=== PATIENT | male | born 1990 | race Caucasian/White ===

== ENCOUNTER 2018-06-22 22:54 | Observation (INO) | payer BC ==
[2018-06-22 23:01] VITALS: BMI 23.3
--- NOTE | 2018-06-22 23:52 | PDOC ---
History of Present Illness - General Chief Complaint: Pain Stated Complaint: HICCUPS Time Seen by Provider: 06/22/18 23:52 - History of Present Illness Initial Comments: 06/23/18 00:54 The patient is a 27 year old male with no significant PMH who presents for evaluation of hiccups and chest pain. The patient reports onset of hiccups earlier this morning that have persisted throughout the day. He noted some left sided chest pain as well prompting his presentation to the ED for further evaluation. He notes that his hiccups have since resolved, but continues to experience some left sided chest pain. He otherwise denies fevers, chills, SOB , nausea, vomiting, abdominal pain, or changes with urination or bowel movements. He denies a family history of cardiac disease as well. Past History - Past Medical History Allergies/Adverse Reactions: Allergies Allergy/AdvReac Type Severity Reaction Status Date / Time No Known Allergies Allergy Verified 06/22/18 23:00 COPD: No - Suicide/Smoking/Psychosocial Hx Smoking History: Never smoked Have you smoked in the past 12 months: No Information on smoking cessation initiated: No Hx Alcohol Use: No Drug/Substance Use Hx: No Substance Use Type: None Review of Systems - Review of Systems Comments:: 06/23/18 00:57 Constitutional: No fevers, chills, fatigue, malaise HEENT: No Rhinorrhea, nasal congestion, visual changes Cardiovascular: Chest pain. No syncope, palpitations, lightheadedness Respiratory: No Cough, SOB, Hemoptysis, Gastrointestinal: No Abdominal pain, Nausea, Vomiting, Constipation, Diarrhea, Melena Genitourinary: No Dysuria, Frequency, Urgency, Hesitancy, Hematuria, Flank pain Musculoskeletal: No Myalgia, arthralgia Skin: No rashes, itching, bruising, pallor Neurologic: No Headache, Dizziness, Numbness, Weakness, or Tingling Psychiatric: No Hallucinations. No SI or HI *Physical Exam - Vital Signs Last Vital Signs Temp Pulse Resp BP Pulse Ox 98.5 F 67 18 123/77 100 06/22/18 22:57 06/22/18 22:57 06/22/18 22:57 06/22/18 22:57 06/22/18 22:57 - Physical Exam Comments: 06/23/18 00:57 General Appearance: Nourished. No Apparent Distress HEENT: No Pharyngeal Erythema, Tonsillar Exudate, Tonsillar Erythema Neck: No Cervical Lymphadenopathy Respiratory/Chest: Lungs Clear, Normal Breath Sounds. Minimal reproducible tenderness to palpation along the left sternal boarder. No Crackles, Rales, Rhonchi, Wheezing Cardiovascular: Regular Rhythm, Regular Rate. No Murmur, Gallops, Rubs Gastrointestinal/Abdominal: Normal Bowel Sounds, Soft. No Guarding, Rebound, Tenderness Musculoskeletal: No CVA Tenderness Extremity: Normal Capillary Refill Integumentary: Normal Color, Dry, Warm Neurologic: Fully Oriented, Alert, Normal Mood/Affect, Normal Response, Heart Score/ECG Review #1 ECG reviewed & interpreted by me at: 00:59 General ECG Interpretation: Sinus Rhythm, Normal Rate, Normal Intervals, No acute ischemic changes ED Treatment Course - LABORATORY CBC & Chemistry Diagram: 06/23/18 00:38 06/23/18 00:38 Medical Decision Making - Medical Decision Making 06/23/18 00:59 The patient is a 27 year old male with no significant PMH who presents for evaluation of hiccups and chest pain. Differential includes but is not limited to: ACS, Musculoskeletal, Arrhythmia, infectious, metabolic Derangement. Given the patient's history and physical exam, it is likely the patient's symptoms are musculoskeletal in nature. However, we will obtain a cbc, cmp, troponin, ekg, chest plain film to evaluate further. We will continue to monitor and reassess while here in the ED. 06/23/18 04:18 CBC, cmp are unremarkable. Troponin is elevated to 0.07. Chest plain film is unremarkable. Bedside echocardiogram is unremarkable. Given the patient's elevated troponin and elevated WBC, it is possible the patient's symptoms are due to a myocarditis. However, he will require observation admission for further work up. We discussed the case with the admitting team who accepted the patient for admission. *DC/Admit/Observation/Transfer Diagnosis at time of Disposition: Elevated troponin Chest pain Qualifiers: Chest pain type: unspecified Qualified Code(s): R07.9 - Chest pain, unspecified - Discharge Dispostion Condition at time of disposition: Stable Decision to Admit order: Yes - Referrals - Patient Instructions - Post Discharge Activity
[2018-06-23 00:53] LABS: BASO % 0.8 % (0-2.0); HEMATOCRIT 44.8 % (35.4-49); HEMOGLOBIN 14.9 GM/dL (11.7-16.9); LYMPH % 25.3 % (8-40); MCH 28.2 pg (25.7-33.7); MCHC 33.3 g/dl (32.0-35.9); MEAN CELL VOLUME 84.7 fl (80-96); MEAN PLT VOLUME 8.3 fl (7.5-11.1); MONO % 5.4 % (3.8-10.2); NEUT % 67.5 % (42.8-82.8); PLATELET COUNT 222 K/MM3 (134-434); RBC 5.28 M/mm3 (4.00-5.60); RDW 13.6 % (11.9-15.9)
--- NOTE | 2018-06-23 01:00 | PDOC ---
Attending Attestation - Resident Resident Name: Musa Valderrama - ED Attending Attestation I have performed the following: I have examined & evaluated the patient, The case was reviewed & discussed with the resident, I agree w/resident's findings & plan, Exceptions are as noted - HPI HPI: 06/23/18 00:57 "The patient is a 27 year old male with no PMH who presents to the emergency department with 1 day of chest pain. The patient notes that he started having hiccups this morning at 9am. The hiccups have been persistent and have subsequently led to soreness in his mid chest. While in the ED, the patient notes his hiccups have resolved. However, he reports pain in the middle of his sternum that is reproducible with palpation. He denies any shortness of breath or palpitations. He denies any recent fevers, chills, headache or dizziness. He denies any recent nausea, vomit, diarrhea or constipation. He denies any recent dysuria, frequency, urgency or hematuria. Allergies: NKDA Past surgical history: None reported. Social History: Nonsmoker. Denies EtOH use and recreational drug use. " - Physicial Exam PE: 06/23/18 00:59 GENERAL: Awake, alert, and fully oriented, in no acute distress. HEAD: No signs of trauma EYES: PERRLA, EOMI, sclera anicteric, conjunctiva clear ENT: Auricles normal inspection, hearing grossly normal, nares patent, oropharynx clear without exudates. Moist mucosa NECK: Nontender, no stepoffs, Normal ROM, supple, no lymphadenopathy, JVD, or masses LUNGS: Breath sounds equal, clear to auscultation bilaterally. No wheezes, and no crackles HEART: Regular rate and rhythm, normal S1 and S2, no murmurs, rubs or gallops ABDOMEN: Soft, nontender, normoactive bowel sounds. No guarding, no rebound. No masses EXTREMITIES: Normal range of motion, no edema. No clubbing or cyanosis. No cords, erythema, or tenderness NEUROLOGICAL: Cranial nerves II through XII intact. 5/5 strength and sensation in all extremities, Normal speech, normal gait, normal cerebellar function SKIN: Warm, Dry, normal turgor, no rashes or lesions noted. - Critical Care Time Total Critical Care Time: 60 Critical Care Statement: The care of this patient involved high complexity decision making to prevent further life threatening deterioration of the patient 's condition and/or to evaluate & treat vital organ system(s) failure or risk of failure. - Medical Decision Making 06/23/18 00:59 27 M with midsternal chest pain after having hiccups all day. Pt with no cardiac risk factors, making ACS unlikely. EKG nonischemic. Pt also with no PE risk factors, PERC score 0. Pain likely msk in etiology. No abdominal tenderness to suggest GI pathology. - Labs, trop - CXR 06/23/18 01:21 Pt with mild trop elevation 0.07 Low suspicion for ACS given lack of risk factors. However, EKG shows ? subtle NE depression in lateral leads, possibly suggestive of pericarditis/myocarditis 06/23/18 03:30 Bedside US with no pericardial effusion Will admit to hospitalist.
[2018-06-23 01:14] LABS: ALBUMIN 4.2 g/dl (3.4-5.0); ALK PHOS 78 U/L (45-117); ANION GAP 4 MMOL/L (8-16); BILIRUBIN,TOTAL 0.8 mg/dL (0.2-1); BLOOD UREA NITROGEN 12 mg/dL (7-18); CALCIUM 8.4 mg/dL (8.5-10.1); CHLORIDE 103 mmol/L (98-107); CO2 31 mmol/L (21-32); CREATININE 1.1 mg/dL (0.55-1.3); GLUCOSE,RANDOM 86 mg/dL (74-106); POTASSIUM 3.7 mmol/L (3.5-5.1); SGOT/AST 24 U/L (15-37); SGPT/ALT 22 U/L (13-61); SODIUM 139 mmol/L (136-145); TOT PROT 7.4 g/dl (6.4-8.2)
[2018-06-23] MEDS ORDERED: IBUPROFEN 400 MG TABLET (FP) PO ONE ×2 (01:20→04:22)
--- NOTE | 2018-06-23 04:05 | PN ---
Teaching Attending Note Name of Resident: Efrain Juares ATTENDING PHYSICIAN STATEMENT I saw and evaluated the patient. I reviewed the resident's note and discussed the case with the resident. I agree with the resident's findings and plan as documented. SUBJECTIVE: Patient is a 27 year old man with no significant PMH who presents to the ER with 1 day of chest pain. The patient notes that he started having hiccups this morning at 9am. The hiccups have been persistent and have subsequently led to soreness in his mid chest. While in the ER, the patient notes his hiccups have resolved. However, he reports pain in the middle of his sternum that is reproducible with palpation. He denies SOB, palpitations, fevers, chills, headache, dizziness, nausea, vomiting, diarrhea or dysuria. OBJECTIVE: Alert Vital Signs Period Temp Pulse Resp BP Sys/Gonzalez Pulse Ox Last 24 Hr 98.5 F 67 18 123/77 100 HEENT: No Jaundice, eye redness or discharge, PERRLA, EOMI. Normocephalic, atraumatic. External ears are normal and hearing is grossly intact. No nasal discharge. Neck: Supple, nontender. No palpable adenopathy or thyromegaly. No JVD Chest: Good effort. Clear to auscultation and percussion. Heart: Regular. No S3, rub or murmur Abdomen: Not distended, soft, nontender and no HSM. No rebound or guarding. Normoactive bowel sounds. Ext: Peripheral pulses intact. No leg edema. Skin: Warm and dry. No petechiae, rash or ecchymosis. Neuro: Alert. Oriented x3. CN 2-12 grossly intact. Sensation grossly intact in all four extremities and DTR are symmetric. Abnormal Lab Results 06/23/18 06/23/18 00:38 00:38 WBC 12.0 H Absolute Neuts (auto) 8.1 H Anion Gap 4 L Calcium 8.4 L Troponin I 0.07 H ASSESSMENT AND PLAN: 1. Chest pain - Pain is atypical. Slightly elevated troponin but no significant ST-T changes on EKG and CXR is negative. Viral pericarditis is a likely culprit. Will admit to telemetry to rule out ACS - trend troponin; get ECHO, fasting lipids and give aspirin. Hiccups stopped, but dysphagia is unexplained. Treat with protonix 40 mg po qd and if dysphagia persists will get barium swallow. Get Urinalysis. 2. DVT prophylaxis - Lovenox 40 mg SQ q 24 hours. 3. Advance directives - Full code
--- NOTE | 2018-06-23 04:31 | HP ---
CHIEF COMPLAINT: Hiccups/Chest Pain PCP: none HISTORY OF PRESENT ILLNESS: Pt is a 27 y/o M with no significant past medical history who presented to [facility] early this AM c/o chest pain and hiccups. Pt endorses he woke up yesterday morning (06/22) with his hiccups. Hiccups have since subsided however his chest pain and dysphagia still persist. Pt endorses he then began to experience a "pressure-like" chest pain on the left side of his chest that is worse with inspiration and drinking. Pain is 4/10 in severity and nonradiating. Pt has never experienced this type of pain in the past. Pt denies trying OTC remedies or medications relieve his symptoms. Denies any illicit drug use. Denies shortness of breath, nausea, lightheadedness, vomiting, or LOC. ER course was notable for: (1) Troponin 0.07, repeat troponin 0.08 (2) WBC 12 (3) EKG --> Normal sinus rhythm. Recent Travel: denies PAST MEDICAL HISTORY: denies PAST SURGICAL HISTORY: Denies. Social History: Le[employer], lives at home w/ and 2 children. Smoking: "Smokes 1 hookah every 3 months ". 12 oz red bull regularly Alcohol: denies Drugs: denies Family History: Father and Mother healthy Allergies denies No Known Allergies Allergy (Verified 06/22/18 23:00) HOME MEDICATIONS: REVIEW OF SYSTEMS CONSTITUTIONAL: Absent: fever, chills, diaphoresis, generalized weakness, malaise, loss of appetite, weight change HEENT: Absent: rhinorrhea, nasal congestion, throat pain, throat swelling, difficulty swallowing, mouth swelling, ear pain, eye pain, visual changes CARDIOVASCULAR: PRESENT: chest pain RESPIRATORY: Absent: cough, shortness of breath, dyspnea with exertion, orthopnea, wheezing, stridor, hemoptysis GASTROINTESTINAL: PRESENT: dysphagia, Hiccups GENITOURINARY: Absent: dysuria, frequency, urgency, hesitancy, hematuria, flank pain, genital pain MUSCULOSKELETAL: Absent: myalgia, arthralgia, joint swelling, back pain, neck pain SKIN: Absent: rash, itching, pallor HEMATOLOGIC/IMMUNOLOGIC: Absent: easy bleeding, easy bruising, lymphadenopathy, frequent infections ENDOCRINE: Absent: unexplained weight gain, unexplained weight loss, heat intolerance, cold intolerance NEUROLOGIC: Absent: headache, focal weakness or paresthesias, dizziness, unsteady gait, seizure, mental status changes, bladder or bowel incontinence PSYCHIATRIC: Absent: anxiety, depression, suicidal or homicidal ideation, hallucinations. PHYSICAL EXAMINATION Vital Signs - 24 hr 06/22/18 22:57 Temperature 98.5 F Pulse Rate 67 Respiratory 18 Rate Blood Pressure 123/77 O2 Sat by Pulse 100 Oximetry (%) GENERAL: AAOx3, NAD HEAD: NC/AT EYES: EOMI, PERRLA EARS, NOSE, THROAT: MMM NECK: Supple, No JVD LUNGS:CTA B/L. No wheezing, rhonchi, rales HEART: RRR, No MRG S1 S2 ABDOMEN: Soft ND, NT, No HSM MUSCULOSKELETAL: FROM throughout UPPER EXTREMITIES: No CCE, FROM LOWER EXTREMITIES: No CCE, FROM NEUROLOGICAL: CN 2-12 intact PSYCHIATRIC: Cooperative. Good eye contact. Appropriate mood and affect. SKIN: No rashes or lesions appreciated Laboratory Results - last 24 hr 06/23/18 06/23/18 00:38 00:38 WBC 12.0 H RBC 5.28 Hgb 14.9 Hct 44.8 MCV 84.7 MCH 28.2 MCHC 33.3 RDW 13.6 Plt Count 222 MPV 8.3 Absolute Neuts (auto) 8.1 H Neutrophils % 67.5 Lymphocytes % 25.3 Monocytes % 5.4 Eosinophils % 1.0 Basophils % 0.8 Nucleated RBC % 0 Sodium 139 Potassium 3.7 Chloride 103 Carbon Dioxide 31 Anion Gap 4 L BUN 12 Creatinine 1.1 Creat Clearance w eGFR > 60 Random Glucose 86 Calcium 8.4 L Total Bilirubin 0.8 AST 24 ALT 22 Alkaline Phosphatase 78 Creatine Kinase 302 Creatine Kinase Index 0.4 CK-MB (CK-2) 1.4 Troponin I 0.07 H Total Protein 7.4 Albumin 4.2 ASSESSMENT/PLAN: Pt is a 27 y/o M with no significant past medical history who presented to [facility] early this AM c/o chest pain and hiccups. # Chest pain 2/2 ACS VS Pericarditis? -Troponin 0.07. repeat Troponin 0.08 -EKG shows subtle KS depression in lateral leads, possibly suggestive of pericarditis/myocarditis? -Cardiology consult - Echo performed. No official read. - Aspirin 325 mg -Trend Troponin -Repeat EKG -Fasting lipids -Tele Obs FEN No fluids Monitor electrolytes Regular Diet DVT ppx: Hep SQ TID Dispo: Tele Obs
[2018-06-23] MEDS ORDERED: ASPIRIN 325 MG TABLET PO ONE (05:32)
[2018-06-23] MEDS ORDERED: PANTOPRAZOLE SODIUM 40 MG VIAL IVPUSH ONE (05:36)
[2018-06-23] MEDS ORDERED: HEPARIN NA (PORCINE) 5,000 UNITS/ML 1ML VIAL ONE (06:11)
[2018-06-23] MEDS ORDERED: ASPIRIN 325 MG TABLET ONE (06:11)
[2018-06-23] MEDS ORDERED: PANTOPRAZOLE SODIUM 40 MG/100 ML BAG IVPB ONE (06:11)
[2018-06-23] MEDS: HEPARIN NA (PORCINE) 5,000 UNITS/ML 1ML VIAL SQ SCH ×3 (06:12→21:42)
[2018-06-23 10:04] LABS: BASO % 0.7 % (0-2.0); EOS % 1.4 % (0-4.5); HEMATOCRIT 44.2 % (35.4-49); HEMOGLOBIN 14.9 GM/dL (11.7-16.9); LYMPH % 31.4 % (8-40); MCH 28.1 pg (25.7-33.7); MCHC 33.7 g/dl (32.0-35.9); MEAN CELL VOLUME 83.3 fl (80-96); MEAN PLT VOLUME 8.1 fl (7.5-11.1); MONO % 6.2 % (3.8-10.2); NEUT % 60.3 % (42.8-82.8); PLATELET COUNT 206 K/MM3 (134-434); RBC 5.31 M/mm3 (4.00-5.60); RDW 13.2 % (11.9-15.9); WHITE BLOOD COUNT 8.6 K/mm3 (4.0-10.0)
[2018-06-23 10:27] LABS: ANION GAP 2 MMOL/L (8-16); BLOOD UREA NITROGEN 9 mg/dL (7-18); CALCIUM 8.4 mg/dL (8.5-10.1); CHLORIDE 108 mmol/L (98-107); CO2 29 mmol/L (21-32); CREATININE 0.9 mg/dL (0.55-1.3); GLUCOSE,RANDOM 85 mg/dL (74-106); MAGNESIUM 2.2 mg/dL (1.8-2.4); PHOSPHOROUS 2.6 mg/dL (2.5-4.9); POTASSIUM 3.7 mmol/L (3.5-5.1); SODIUM 139 mmol/L (136-145)
[2018-06-23 11:01] LABS: CHOLESTEROL 145 mg/dL (50-200); HDL CHOLESTEROL 41 mg/dL (40-60); TRIGLYCERIDES 68 mg/dL (0-150)
[2018-06-23 13:35] LABS: INR 1.06 (0.83-1.09); PROTHROMBIN TIME (PATIENT) 12.5 SEC (9.7-13.0)
[2018-06-23 13:38] LABS: ACTIVATED PTT 34.8 SECONDS (25.2-36.5)
[2018-06-23] MEDS: COLCHICINE 0.6 MG TABLET (FP) PO SCH (13:50)
--- NOTE | 2018-06-23 14:10 | CONSULT ---
Consultation: CARDIOLOGY CONSULT CONSULT REQUEST: We have been asked to medically evaluate this patient for ( chest pain r/o ACS). HISTORY OF PRESENT ILLNESS: Patient is a 27 year old male with no PMHx presented to the ED with the chief complaint of chest pain x 1 day. As per the patient, he was apparently well until yesterday morning, when he woke up at 9 am with continuous hicupps. It approximately lasted for about 12 hours, continuous then intermittently. At around 8 pm last night, he started having severe chest pain, located centrally, pressure type, 8/10 in intensity, non radiating, not associated with nausea or vomiting. Chest pain persisted which prompted him to come to the ED for further evaluation and treatment. Denies palpitation, sob, cough, abdominal pain, headache, tingling or numbness. Patient reports he never had chest pain in the past. Bowel/Bladder habit normal. Sleep/Appetite normal prior to his illness. No recent h/o illness. Patient's daughter had URTI 3 weeks ago but he didn't have any symptoms. Patient seen and examined at bed side this morning. Still has chest pain, pressure type, located centrally, non radiating, 4/10 in intensity, aggravated with deep inspiration. Other ROS is negative. No events noted in Tele. PAST MEDICAL HISTORY: Non contributory ALLERGIES: NKDA PAST SURGICAL HISTORY: None SOCIAL HISTORY Smoking: Smokes 1 hookah every 3 months, drinks red bull regularly Alcohol: Drinks occasionally, last drink 5 days ago, about 4 shots of Scotch. Drugs: Denies FAMILY HISTORY: Non contributory OCCUPATION: [employer]oy We[employer]. REVIEW OF SYSTEMS: CONSTITUTIONAL: Absent: fever, chills, diaphoresis, generalized weakness, malaise, loss of appetite, weight change HEENT: Absent: rhinorrhea, nasal congestion, throat pain, throat swelling, difficulty swallowing, mouth swelling, ear pain, eye pain, visual changes CARDIOVASCULAR: Present: chest pain Absent: syncope, palpitations, irregular heart rate, lightheadedness, peripheral edema RESPIRATORY: Absent: cough, shortness of breath, dyspnea with exertion, orthopnea, wheezing, stridor, hemoptysis GASTROINTESTINAL: Absent: abdominal pain, abdominal distension, nausea, vomiting, diarrhea, constipation, melena, hematochezia GENITOURINARY: Absent: dysuria, frequency, urgency, hesitancy, hematuria, flank pain, genital pain MUSCULOSKELETAL: Absent: myalgia, arthralgia, joint swelling, back pain, neck pain SKIN: Absent: rash, itching, pallor HEMATOLOGIC/IMMUNOLOGIC: Absent: easy bleeding, easy bruising, lymphadenopathy, frequent infections ENDOCRINE: Absent: unexplained weight gain, unexplained weight loss, heat intolerance, cold intolerance NEUROLOGIC: Absent: headache, focal weakness or paresthesias, dizziness, unsteady gait, seizure, mental status changes, bladder or bowel incontinence PSYCHIATRIC: Absent: anxiety, depression, suicidal or homicidal ideation, hallucinations. PHYSICAL EXAMINATION Vital Signs - 24 hr 06/22/18 06/23/18 06/23/18 22:57 08:34 11:13 Temperature 98.5 F 98 F Pulse Rate 67 58 L Respiratory 18 18 Rate Blood Pressure 123/77 108/68 O2 Sat by Pulse 100 100 Oximetry (%) GENERAL: Young male, sitting comfortably in bed, Awake, alert, and fully oriented, in no acute distress. HEAD: Normal with no signs of trauma. EYES: EOM intact, no pallor or icterus. EARS, NOSE, THROAT: Ears normal. Moist mucous membranes. NECK: Supple. LUNGS: B/L Breath sounds equal, clear to auscultation bilaterally. No wheezes, and no crackles. No accessory muscle use. HEART: Regular rate and rhythm, normal S1 and S2 without murmur. ABDOMEN: Soft, nontender, no oraganomegaly. MUSCULOSKELETAL: Normal range of motion at all joints. No bony deformities or tenderness. No CVA tenderness. UPPER EXTREMITIES: 2+ pulses, warm, well-perfused. No cyanosis. No clubbing. Cap refill <2 seconds. No peripheral edema. LOWER EXTREMITIES: 2+ pulses, warm, well-perfused. No calf tenderness. No peripheral edema. NEUROLOGICAL: No facial droop, power 5/5 in all extremities. Cranial nerves II -XII intact. Normal speech. Gait not observed. PSYCHIATRIC: Cooperative. Good eye contact. Appropriate mood and affect. SKIN: Warm, dry, normal turgor, no rashes or lesions noted. Laboratory Results - last 24 hr 06/23/18 06/23/18 06/23/18 00:38 00:38 04:16 WBC 12.0 H RBC 5.28 Hgb 14.9 Hct 44.8 MCV 84.7 MCH 28.2 MCHC 33.3 RDW 13.6 Plt Count 222 MPV 8.3 Absolute Neuts (auto) 8.1 H Neutrophils % 67.5 Lymphocytes % 25.3 Monocytes % 5.4 Eosinophils % 1.0 Basophils % 0.8 Nucleated RBC % 0 PT with INR INR PTT (Actin FS) Sodium 139 Potassium 3.7 Chloride 103 Carbon Dioxide 31 Anion Gap 4 L BUN 12 Creatinine 1.1 Creat Clearance w eGFR > 60 Random Glucose 86 Calcium 8.4 L Phosphorus Magnesium Total Bilirubin 0.8 AST 24 ALT 22 Alkaline Phosphatase 78 Creatine Kinase 302 Creatine Kinase Index 0.4 CK-MB (CK-2) 1.4 Troponin I 0.07 H 0.08 H Total Protein 7.4 Albumin 4.2 Triglycerides Cholesterol Total LDL Cholesterol HDL Cholesterol 06/23/18 06/23/18 06/23/18 09:45 09:45 09:45 WBC 8.6 RBC 5.31 Hgb 14.9 Hct 44.2 MCV 83.3 MCH 28.1 MCHC 33.7 RDW 13.2 Plt Count 206 MPV 8.1 Absolute Neuts (auto) 5.2 Neutrophils % 60.3 Lymphocytes % 31.4 D Monocytes % 6.2 Eosinophils % 1.4 Basophils % 0.7 Nucleated RBC % 0 PT with INR 12.50 INR 1.06 PTT (Actin FS) 34.8 Sodium 139 Potassium 3.7 Chloride 108 H Carbon Dioxide 29 Anion Gap 2 L BUN 9 Creatinine 0.9 Creat Clearance w eGFR > 60 Random Glucose 85 Calcium 8.4 L Phosphorus 2.6 Magnesium 2.2 Total Bilirubin AST ALT Alkaline Phosphatase Creatine Kinase Creatine Kinase Index CK-MB (CK-2) Troponin I Total Protein Albumin Triglycerides 68 Cholesterol 145 Total LDL Cholesterol 99 HDL Cholesterol 41 Active Medications Generic Name Dose Route Start Last Admin Trade Name Freq PRN Reason Stop Dose Admin Colchicine 0.6 mg 06/23/18 13:00 06/23/18 13:50 Colcrys - PO 0.6 mg DAILY TOMI Administration Heparin Sodium (Porcine) 5,000 unit 06/23/18 06:00 06/23/18 13:50 Heparin - SQ 5,000 unit TID TOMI Administration Pantoprazole Sodium 40 mg 06/24/18 10:00 Protonix - PO DAILY [facility] Patient is a 27 year old male with no PMHx presented to the ED with the chief complaint of chest pain x 1 day. ASSESSMENT Chest pain- likely secondary to Myopericarditis Leukocytosis likely reactive: Now resolved PLAN Chest pain likely secondary to myopericarditis. However, would like to r/o ACS. Chest pain, located centrally, 8/10 in intensity, non radiating, aggravated on deep inspiration Troponin 0.07--->0.08---> ordered stat at 2:15 pm. Admitted in Tele/continuous cardiac monitoring Echo done, report pending. Would recommend Stress test when stable. Continue colchicine 0.6 mg PO Daily Avoid strenuous exercise. Rest as per primary. Case discussed with Dr. navarro. Dispo: We will continue to follow the patient. Thank you for this consultative opportunity. Visit type - Emergency Visit Emergency Visit: Yes ED Registration Date: 06/23/18 Care time: The patient presented to the Emergency Department on the above date and was hospitalized for further evaluation of their emergent condition. - New Patient This patient is new to me today: Yes Date on this admission: 06/23/18 - Critical Care Critical Care patient: No
--- NOTE | 2018-06-23 14:16 | PN ---
Physical Exam: SUBJECTIVE: Patient seen and examined, reports pain has improved after ibuprofen , does report pain to left anterior chest after changing position in bed, denies any chest pain or shortness of breath. OBJECTIVE: Patient is a 27 y/o male with no pmh, patient was admitted from the emergency department to observation. Vital Signs Period Temp Pulse Resp BP Sys/Gonzalez Pulse Ox Last 24 Hr 98 F-98.5 F 58-67 18-18 108-123/68-77 100-100 GENERAL: The patient is awake, alert, and fully oriented, in no acute distress. HEAD: Normal with no signs of trauma. EYES: PERRL, extraocular movements intact, sclera anicteric, conjunctiva clear. No ptosis. ENT: Ears normal, nares patent, oropharynx clear without exudates, moist mucous membranes. NECK: Trachea midline, full range of motion, supple. LUNGS: Breath sounds equal, clear to auscultation bilaterally, no wheezes, no crackles, no accessory muscle use. HEART: Regular rate and rhythm, S1, S2 without murmur, rub or gallop. ABDOMEN: Soft, nontender, nondistended, normoactive bowel sounds, no guarding, no rebound, no hepatosplenomegaly, no masses. EXTREMITIES: 2+ pulses, warm, well-perfused, no edema. NEUROLOGICAL: Cranial nerves II through XII grossly intact. Normal speech, gait not observed. PSYCH: Normal mood, normal affect. SKIN: Warm, dry, normal turgor, no rashes or lesions noted Laboratory Results - last 24 hr 06/23/18 06/23/18 06/23/18 00:38 00:38 04:16 WBC 12.0 H RBC 5.28 Hgb 14.9 Hct 44.8 MCV 84.7 MCH 28.2 MCHC 33.3 RDW 13.6 Plt Count 222 MPV 8.3 Absolute Neuts (auto) 8.1 H Neutrophils % 67.5 Lymphocytes % 25.3 Monocytes % 5.4 Eosinophils % 1.0 Basophils % 0.8 Nucleated RBC % 0 PT with INR INR PTT (Actin FS) Sodium 139 Potassium 3.7 Chloride 103 Carbon Dioxide 31 Anion Gap 4 L BUN 12 Creatinine 1.1 Creat Clearance w eGFR > 60 Random Glucose 86 Calcium 8.4 L Phosphorus Magnesium Total Bilirubin 0.8 AST 24 ALT 22 Alkaline Phosphatase 78 Creatine Kinase 302 Creatine Kinase Index 0.4 CK-MB (CK-2) 1.4 Troponin I 0.07 H 0.08 H Total Protein 7.4 Albumin 4.2 Triglycerides Cholesterol Total LDL Cholesterol HDL Cholesterol 06/23/18 06/23/18 06/23/18 09:45 09:45 09:45 WBC 8.6 RBC 5.31 Hgb 14.9 Hct 44.2 MCV 83.3 MCH 28.1 MCHC 33.7 RDW 13.2 Plt Count 206 MPV 8.1 Absolute Neuts (auto) 5.2 Neutrophils % 60.3 Lymphocytes % 31.4 D Monocytes % 6.2 Eosinophils % 1.4 Basophils % 0.7 Nucleated RBC % 0 PT with INR 12.50 INR 1.06 PTT (Actin FS) 34.8 Sodium 139 Potassium 3.7 Chloride 108 H Carbon Dioxide 29 Anion Gap 2 L BUN 9 Creatinine 0.9 Creat Clearance w eGFR > 60 Random Glucose 85 Calcium 8.4 L Phosphorus 2.6 Magnesium 2.2 Total Bilirubin AST ALT Alkaline Phosphatase Creatine Kinase Creatine Kinase Index CK-MB (CK-2) Troponin I Total Protein Albumin Triglycerides 68 Cholesterol 145 Total LDL Cholesterol 99 HDL Cholesterol 41 Active Medications Generic Name Dose Route Start Last Admin Trade Name Freq PRN Reason Stop Dose Admin Colchicine 0.6 mg 06/23/18 13:00 06/23/18 13:50 Colcrys - PO 0.6 mg DAILY TOMI Administration Heparin Sodium (Porcine) 5,000 unit 06/23/18 06:00 06/23/18 13:50 Heparin - SQ 5,000 unit TID TOMI Administration Pantoprazole Sodium 40 mg 06/24/18 10:00 Protonix - PO DAILY [facility] ASSESSMENT/PLAN: 1) cardiovascular chest pain, secondary to pericarditis - ekg reviewed, subtle j point elevation in inferior leads, continue to trend troponins, crp and esr ordered, will start colchine - pending echo - continuos cardiac monitoring, no events noted - appreciate cardiology input f/e/n - low sodium diet - replete electrolytes prn ppx - oob - heparin sq dispo:pt requires obsv telemetry admission Visit type - Emergency Visit Emergency Visit: Yes ED Registration Date: 06/23/18 Care time: The patient presented to the Emergency Department on the above date and was hospitalized for further evaluation of their emergent condition. - New Patient This patient is new to me today: Yes Date on this admission: 06/23/18 - Critical Care Critical Care patient: No - Discharge Referral Referred to [facility] Med P.C.: No
--- NOTE | 2018-06-23 14:56 | ECHO ---
Version: 1 Name: CLARK BAIN Exam: Adult Echocardiogram Study Date: 06/23/2018, 1:02 PM Age: 27 Years MMode/2D Measurements & Calculations IVSd: 0.80 cm LVIDs: 2.7 cm LVIDd: 3.9 cm LVPWd: 1.16 cm LVOT diam: 1.66 cm Ao root diam: 1.87 cm LA dimension: 2.08 cm Doppler Measurements & Calculations Lat Peak E' Jesus: 18.2 cm/sec Med Peak E' Jesus: 12.8 cm/sec Procedure A two-dimensional transthoracic echocardiogram with color flow and Doppler was performed. Left Ventricle The left ventricular size, thickness and function are normal. The left ventricular ejection fraction is normal. The left ventricular wall motion is normal. Right Ventricle The right ventricle is normal in size and function. Atria Normal left and right atrial size and function. Mitral Valve There is mild mitral valve thickening. There is no mitral valve stenosis. There is trace mitral regurgitation. Tricuspid Valve There is mild tricuspid valve thickening. There is no tricuspid stenosis. There was insufficient TR detected to calculate RV systolic pressure. Aortic Valve The aortic valve is not well visualized. No hemodynamically significant valvular aortic stenosis. No aortic regurgitation is present. Pulmonic Valve The pulmonic valve is not well visualized. Great Vessels The aortic root is normal size. Pericardium/Pleura There is no pericardial effusion. Summary Statements The left ventricular size, thickness and function are normal The aortic valve is not well visualized. The left ventricular wall motion is normal. The left ventricular ejection fraction is normal. There is trace mitral regurgitation. There was insufficient TR detected to calculate RV systolic pressure. MD Kleber Ortiz 06/23/2018, 2:55 PM Ordering Physician: Elena Flanagan Referring Physician: ELENA FLANAGAN Performed By: Rosalie Dumont
--- NOTE | 2018-06-23 14:57 | CON.CARD ---
Consult Consult Specialty:: Cardiology Reason for Consultation:: Chest pain - History of Present Illness Chief Complaint: Chest pain History of Present Illness: 27 year old male with no PMHx presented to the ED with the chief complaint of chest pain x 1 day. As per the patient, he was apparently well until yesterday morning, when he woke up at 9 am with continuous hicupps. It approximately lasted for about 12 hours, continuous then intermittently. At around 8 pm last night, he started having severe chest pain, located centrally, pressure type, 8/10 in intensity, non radiating, not associated with nausea or vomiting. Chest pain persisted which prompted him to come to the ED for further evaluation and treatment. Denies palpitation, sob, cough, abdominal pain, headache, tingling or numbness. Patient reports he never had chest pain in the past. Bowel/Bladder habit normal. Sleep/Appetite normal prior to his illness. No recent h/o illness. Patient's daughter had URTI 3 weeks ago but he didn't have any symptoms. Patient seen and examined at bed side this morning. Still has chest pain, pressure type, located centrally, non radiating, 4/10 in intensity, aggravated with deep inspiration. Other ROS is negative. No events noted in Tele. 06/23/18 The pain is slightly imoproved. Peak Troponin was 0.08. - Alcohol/Substance Use Hx Alcohol Use: No - Smoking History Smoking history: Never smoked Have you smoked in the past 12 months: No Home Medications - Allergies Allergies/Adverse Reactions: Allergies Allergy/AdvReac Type Severity Reaction Status Date / Time No Known Allergies Allergy Verified 06/22/18 23:00 - Home Medications Home Medications: Ambulatory Orders NK [No Known Home Medication] 06/23/18 Vital Signs: Vital Signs Temperature 98 F 06/23/18 08:34 Pulse Rate 58 L 06/23/18 08:34 Respiratory Rate 18 06/23/18 08:34 Blood Pressure 108/68 06/23/18 08:34 O2 Sat by Pulse Oximetry (%) 100 06/23/18 13:30 Constitutional: Yes: Well Nourished HENT: Yes: WNL Neck: Yes: WNL Respiratory: Yes: WNL Gastrointestinal: Yes: Normal Bowel Sounds, Soft Cardiovascular: Yes: Regular Rate and Rhythm (NL S1S2 no MRHG) JVD: No Extremities: Yes: WNL Edema: No Neurological: Yes: Alert, Oriented (Non focal) - Other Data Labs, Other Data: CBC, BMP 06/23/18 09:45 06/23/18 09:45 INR, PTT INR 1.06 (0.83-1.09) 06/23/18 09:45 Troponin, BNP 06/23/18 06/23/18 00:38 04:16 Troponin I 0.07 H 0.08 H Troponin, BNP 06/23/18 06/23/18 00:38 04:16 Troponin I 0.07 H 0.08 H Assessment/Plan Patient is a 27 year old male with no PMHx presented to the ED with the chief complaint of chest pain x 1 day. Symptoms are very consistent with pericarditis and minimal enzymes are suspicious for myopericarditis. His symptoms are not severe and resolving. Myopericarditis Agree with Colchicine 0.6 mg Obtain an ESR and this will help determine the course of the Colchicine. Would observe over night. Would recommend avoiding strenuous activity Until asymptomatic and ESR not elevated Eventually would do an out patient stress test (would wait at least one month) Echo pending
[2018-06-23 22:01] LABS: ANION GAP 7 MMOL/L (8-16); BLOOD UREA NITROGEN 10 mg/dL (7-18); CALCIUM 8.9 mg/dL (8.5-10.1); CHLORIDE 105 mmol/L (98-107); CO2 28 mmol/L (21-32); GLUCOSE,RANDOM 87 mg/dL (74-106); MAGNESIUM 2.1 mg/dL (1.8-2.4); POTASSIUM 4.2 mmol/L (3.5-5.1); SODIUM 140 mmol/L (136-145)
[2018-06-24] MEDS: HEPARIN NA (PORCINE) 5,000 UNITS/ML 1ML VIAL SQ SCH (06:41)
[2018-06-24] MEDS ORDERED: PANTOPRAZOLE 40 MG TABLET (FP) PO SCH (10:00)
[2018-06-24] MEDS: COLCHICINE 0.6 MG TABLET (FP) PO SCH (11:03)
[2018-06-24 11:09] VITALS: BP 112/70; PULSE 68; TEMP 98
--- NOTE | 2018-06-24 14:05 | DS ---
Physical Exam: SUBJECTIVE: Patient seen and examined OBJECTIVE: Vital Signs Period Temp Pulse Resp BP Sys/Gonzalez Pulse Ox Last 24 Hr 97.5 F-98.2 F 56-77 18-20 104-125/55-70 100-100 PHYSICAL EXAM GENERAL: The patient is awake, alert, and fully oriented, in no acute distress. HEAD: Normal with no signs of trauma. EYES: PERRL, extraocular movements intact, sclera anicteric, conjunctiva clear. ENT: Ears normal, nares patent, oropharynx clear without exudates, moist mucous membranes. NECK: Trachea midline, full range of motion, supple. LUNGS: Breath sounds equal, clear to auscultation bilaterally, no wheezes, no crackles, no accessory muscle use. HEART: Regular rate and rhythm, S1, S2 without murmur, rub or gallop. ABDOMEN: Soft, nontender, nondistended, normoactive bowel sounds, no guarding, no rebound, no hepatosplenomegaly, no masses. EXTREMITIES: 2+ pulses, warm, well-perfused, no edema. NEUROLOGICAL: Cranial nerves II through XII grossly intact. Normal speech, gait not observed. PSYCH: Normal mood, normal affect. SKIN: Warm, dry, normal turgor, no rashes or lesions noted. LABS Laboratory Results - last 24 hr 06/23/18 06/23/18 06/23/18 14:35 14:35 20:47 ESR 2 Sodium 140 Potassium 4.2 Chloride 105 Carbon Dioxide 28 Anion Gap 7 L BUN 10 Creatinine 1.0 Creat Clearance w eGFR > 60 Random Glucose 87 Calcium 8.9 Magnesium 2.1 Creatine Kinase 352 H Creatine Kinase Index 0.5 CK-MB (CK-2) 2.1 Troponin I 0.08 H C-Reactive Protein < 0.3 HOSPITAL COURSE: Date of Admission:06/23/18 Date of Discharge: 06/24/18 06/25/18 Received call from patient's pharmacy, needs pre-auth for colchicine. Form filled out and faxed back. Spoke with patient. Advised to continue ibuprofen and omeprazole and to start colchicine as soon as it is approved. Advised patient to come back to ED if pain develops. Minutes to complete discharge: 35 Discharge Summary Reason For Visit: CHEST PAIN Current Active Problems Chest pain (Acute) Elevated troponin (Acute) Condition: Improved - Instructions Diet, Activity, Other Instructions: A prescription has been sent to your pharmacy for colchicine which is an anti- inflammatory. Take this medication twice daily. You have been given a one-month supply but you may have to be on this medication longer. It is therefore very important that you follow up with a mobile ui designer. Prescriptions have also been sent for ibuprofen. Take the 600mg pills the first week, the 400mg pills the second week, and the 200mg pills the third week. A prescription has also been sent for omeprazole. Take one pill daily. You were seen by mobile ui designer Dr. Mathias. If you would like to follow up with him , his contact information is enclosed. He will give you refills for colchicine if needed. He may also do additional cardiac testing. Return to the emergency department for any new or worsening symptoms. Referrals: Musa Mathias MD [Staff Physician] - Disposition: HOME - Home Medications Comprehensive Discharge Medication List: Ambulatory Orders Colchicine 0.6 mg PO BID #60 capsule 06/24/18 This patient is new to me today: Yes Date on this admission: 06/25/18 Emergency Visit: Yes ED Registration Date: 06/23/18 Care time: The patient presented to the Emergency Department on the above date and was hospitalized for further evaluation of their emergent condition. Critical Care patient: No - Discharge Referral Referred to [facility] Med P.C.: No
--- NOTE | 2018-06-28 10:41 | EKG ---
Test Reason : Blood Pressure : / mmHG Vent. Rate : 066 BPM Atrial Rate : 066 BPM P-R Int : 156 ms QRS Dur : 092 ms QT Int : 390 ms P-R-T Axes : 081 066 054 degrees QTc Int : 408 ms NORMAL SINUS RHYTHM NORMAL ECG NO PREVIOUS ECGS AVAILABLE Confirmed by SETH MURILLO MD ([id number]) on 06/28/2018 10:40:59 AM Referred By: Confirmed By:SETH MURILLO MD
== END 2018-06-24 14:58 | disposition home or self-care (01) ==
LOC: JER 22:54 → JERBED 06-23 06:22 → J4W 06-23 08:27
PROVIDERS: ADMIT Internal Medicine; ATTEND Nurse Practitioner Acute Care
PROC: 3E033GC Introduction of Other Therapeutic Substance into Peripheral Vein, Percutaneous Approach (ICD-10-PCS; principal; 2018-06-23)
PROC: 3E013GC Introduction of Other Therapeutic Substance into Subcutaneous Tissue, Percutaneous Approach (ICD-10-PCS; 2018-06-23)
DX: I31.9 Disease of pericardium, unspecified (principal); R07.89 Other chest pain; R77.8 Other specified abnormalities of plasma proteins
CPT/HCPCS: 36415; 71046-TC-FY; 80048; 80053; 80061; 82550; 82553; 83721; 83735; 84100; 84484; 85025; 85610; 85651; 85730; 86140; 93005; 93010; 93306-TC; 99284-25; G0378; J1644